=== PATIENT | male | born 1980 | race Caucasian/White ===

== ENCOUNTER 2023-03-10 07:53 | Day surgery (SDC) | payer OTHER ==
[2023-03-07 10:44] VITALS: BMI 32.5
[2023-03-10] MEDS ORDERED: Vancomycin 1 GM VIAL ONE (11:58)
[2023-03-10 12:09] LABS: Hematocrit 52.7 % (42.0-52.0); Hemoglobin 18.1 g/dL (14.0-18.0); Mean Corpuscular HGB CONC 34.3 g/dL (32.0-36.0); Mean Corpuscular Hemoglobin 29.7 pg (27.0-31.0); Mean Corpuscular Volume 86.5 fl (78.0-98.0); Mean Platelet Volume 11.9 fL (7.4-10.4); Platelet Count 350 10x3/uL (130-400); RBC Distribution Width 13.3 % (11.5-14.5); Red Blood Cell (RBC) Count 6.09 mill/uL (4.70-6.10)
[2023-03-10] MEDS ORDERED: Midazolam HCl 2 mg/2 ml Vial ONE (13:04)
[2023-03-10] MEDS ORDERED: Sodium Chloride 0.9% 100 ML ONE (13:11)
[2023-03-10] MEDS ORDERED: CEFAZOLIN 2 GM VIAL ONE (13:11)
[2023-03-10] MEDS ORDERED: fentaNYL PF 100 MCG/2 ML SYRINGE ONE (13:12)
[2023-03-10] MEDS ORDERED: Rocuronium Bromide 10 MG/ML (10ML VIAL) ONE (13:23)
[2023-03-10] MEDS ORDERED: Dexamethasone 20 MG/5 ML VIAL ONE (13:23)
[2023-03-10] MEDS ORDERED: Lidocaine 1% PF 5 ML VIAL ONE (13:23)
[2023-03-10] MEDS ORDERED: Ondansetron PF 4 MG/2 ML Vial ONE (13:23)
[2023-03-10] MEDS ORDERED: Ketorolac Tromethamine 30 MG/ML VIAL ONE (13:23)
[2023-03-10] MEDS ORDERED: PROPOFOL 200 MG/20 ML VIAL ONE (13:23)
[2023-03-10 13:30] LABS: Anion Gap 12 mmol/L (10-20); BUN (Urea Nitrogen) 10 mg/dL (8.9-20.6); Calc. Creatinine Clearance 143 mL/min (70-130); Calcium 9.6 mg/dL (7.8-10.44); Carbon Dioxide 26 mmol/L (22-29); Chloride 102 mmol/L (98-107); Estimated GFR 91; Glucose 85 mg/dL (70-105); Potassium 4.1 mmol/L (3.5-5.1); Sodium 136 mmol/L (136-145)
[2023-03-10] MEDS ORDERED: Meperidine HCl/PF 25 MG/ML VIAL ONE (14:49)
[2023-03-10] MEDS ORDERED: HYDROmorphone 2 MG/ML VIAL ONE (14:49)
[2023-03-10] MEDS ORDERED: fentaNYL 50 mcg/mL 1 mL Vial ONE ×2 (15:01→15:24)
== END 2023-03-10 16:56 | disposition home or self-care (01) ==
LOC: SDC 07:53
PROVIDERS: ATTEND Neurological Surgery
PROC: 0SG00K1 Fusion of Lumbar Vertebral Joint with Nonautologous Tissue Substitute, Posterior Approach, Posterior Column, Open Approach (ICD-10-PCS; principal; 2023-03-10)
DX: M54.16 Radiculopathy, lumbar region (principal)
CPT/HCPCS: 36415; 80048; 85027; 93005; 93010; C1713; C1889; J1100; J1170; J1885; J2175; J2250; J2405; J2704; J3010; J3370; J3490